=== PATIENT | female | born 1935 | race Caucasian/White ===

== ENCOUNTER → 2020-07-08 | Day surgery (SDC) | payer OTHER ==
[~2020-07-08] MED LIST: HYDROCODON-ACE1 EAC7 PO; NORVASC10 MG PO; ZOCOR20 MG PO
[2020-07-08 06:41] LABS: HEMATOCRIT 39.4 % (37.0-47.0); HEMOGLOBIN 13.3 gm/dL (12.0-15.0); MCH 29.7 pg (26.0-34.0); MCHC 33.7 g/dL (28.0-37.0); MCV 88.3 fL (80.0-100.0); MPV 7.9 fl. (7.2-11.1); RBC 4.47 mil/uL (4.20-5.00); RDW-CV 14.2 % (10.5-14.5); WBC 6.2 thou/uL (4.0-11.0)
[2020-07-08 06:50] LABS: CALCIUM 8.9 mg/dL (8.5-10.1); CREATININE 1.1 mg/dL (0.6-1.3); POTASSIUM 3.7 mmol/L (3.5-5.1)
[2020-07-08 07:52] LABS: TOTAL BILIRUBIN 0.6 mg/dL (<0.1-1.0); TOTAL PROTEIN 7.9 g/dL (6.4-8.2)
--- NOTE | 2020-07-08 12:13 | EKG ---
[place] [address] ELECTROCARDIOGRAM REPORT Name: HORACEMELVINA Barrios Room: [facility]#: [id number] Admission: 07/08/20 Attend Phys: Wilton Germain Discharge: Date of : 33 Date of Service: 07/08/20 0740 Report #: [id number] THIS REPORT FOR: //name// [facility] Test Date: 2020-07-08 Test Time: 07:40:19 Pat Name: MELVINA VU Department: Room: Gender: F Citrus Peeler: : 1935 Requested By: Wilton Carey Order Number: [id number] Reading MD: Remy Garcia Measurements Intervals Drake Rate: 56 P: 251 AR: 127 QRS: -35 QRSD: 96 T: 23 QT: 432 QTc: 417 Interpretive Statements Ectopic atrial rhythm Left axis deviation Abnormal R-wave progression, early transition Baseline wander in lead(s) II,III,aVF No previous ECG available for comparison Electronically Signed On 07-08-2020 12:13:24 CDT by Remy Garcia [email or web address] <ELECTRONICALLY SIGNED> By: Remy Garcia MD, FACC 07/08/20 1213 0740 0740 Remy Garcia MD, [facility] /EPI
--- NOTE | 2020-07-10 10:10 | PATH ---
[address] [address] PATHOLOGY RPT PROCEDURE Name: MELVINA VU Room: [facility]#: [id number] Admission: 07/08/20 Date of : 33 Discharge: Report #: [id number] Path Case #: [id number] [facility] Accession Number: [id number] . 01 Material submitted: . gallbladder - GALLBLADDER AND CONTENTS . 01 Clinical history: . LAPAROSCOPIC CHOLECYSTECTOMY CALCULUS OF GALLBLADDER . 02 Diagnosis: Gallbladder and contents: - Chronic cholecystitis with cystic fundal diverticuli, cholelithiasis and lymph node showing lipophagic reaction. . (AMPARO:mml; 07/09/2020) [facility] 07/09/2020 1523 Local . 02 Electronically signed: . Yogesh Dobbins MD, Pathologist NPI- [id number] . 01 Gross description: . Fixative: Formalin Labeled: Gallbladder and contents Specimen received: Intact cholecystectomy specimen Dimensions: 7.3 x 3.5 x 2.7 cm Serosa: [place]-muro muro-green and smooth Lymph node: Yes, measuring 0.7 x 0.6 x 0.3 cm Mucosa: Dark green and velvety Average wall thickness: 0.1 cm Calculi: Yes, one roughened black calculus is present within the gallbladder measuring 1.2 cm in greatest dimension Abnormalities: In the wall of the fundus are 2 simple cysts measuring 0.4 and 1.2 cm in greatest dimension, which are filled with watery fluid and have muro linings. A1- Electrical Sign Servicer body, fundus, and the cystic duct margin and lymph node. A2-cystic area submitted entirely ([facility]; 07/08/2020) [facility] 07/08/2020 1747 Local . 02 Pathologist provided ICD-10: K80.10 . 02 CPT . 891175 Specimen Comment: A courtesy copy of this report has been sent to [phone] [address] PATHOLOGY RPT PROCEDURE Name: MELVINA VU Room: [facility]#: [id number] Admission: 07/08/20 Date of : 33 Discharge: Report #: [id number] Path Case #: [id number] Specimen Comment: [id number] Specimen Comment: Report sent to / DR WHYTE Performed at: 01 [facility] [address], [place], [place] [id number] MD Yossi Wetzel MD Phone: [phone] Performed at: 02 [facility] [address], [place], [place] [id number] MD Yogesh Dobbins MD Phone: [phone]
--- NOTE | 2020-07-11 12:13 | OP ---
[facility] [address] [place] [address] OPERATIVE REPORT Name: MELVINA VU Room: [facility]#: [id number] Admission: 07/08/20 Attend Phys: Wilton Carey Discharge: Date of : 33 Report #: [id number] THIS REPORT FOR: cc: Sandrita Sanchez MD, Ghazal A. MD Patterson, Jonathan D. MD ~ DOC #: [id number] Wilton Carey MD DATE OF SURGERY: 07/08/2020 PREOPERATIVE DIAGNOSIS: Symptomatic cholelithiasis. POSTOPERATIVE DIAGNOSIS: Symptomatic cholelithiasis. OPERATION: Laparoscopic cholecystectomy. SURGEON: Wilton Carey MD. ANESTHESIA: General. ESTIMATED BLOOD LOSS: Minimal. SPECIMENS: Gallbladder. DESCRIPTION OF PROCEDURE: After informed consent was obtained, the patient was brought to the operating room and placed supine. SCDs were placed and working, preoperative antibiotics were administered, general anesthesia was induced. The abdomen was prepped and draped in the usual sterile fashion. A 10 mm incision was made below the umbilicus. Fascia was incised and a trocar was placed. Pneumoperitoneum was established. Three right upper quadrant 5 mm ports were placed. Gallbladder was grasped at the fundus and retracted cephalad. Infundibulum was grasped and retracted laterally. I dissected out the cystic duct and the cystic artery. The cystic plate was fully identified. The cystic duct and artery were clipped and ligated leaving 2 clips on the remaining duct and 1 on the remaining artery. Gallbladder was then taken off the liver bed with electrocautery. It was placed into an Endopouch and removed. The fascia was then closed with a rdbbuy-ox-olchc 0 Vicryl. Skin was closed with 4-0 Monocryl. Incisions were sealed with Steri-Strips. COMPLICATIONS: None. DISPOSITION: The patient was taken to recovery in satisfactory condition. MD ANA Mcclelland/[place] [address] OPERATIVE REPORT Name: MELVINA VU Room: [facility]#: [id number] Admission: 07/08/20 Attend Phys: Wilton Carey Discharge: Date of : 33 Report #: [id number] <ELECTRONICALLY SIGNED> By: Wilton Carey MD 07/11/20 1213 0835 0911Wilton Carey MD /trixie
== END | disposition home or self-care (01) ==
LOC: M.SUR 06:09
PROVIDERS: ATTEND Surgery
DX: K80.10 Calculus of gallbladder with chronic cholecystitis without obstruction (principal); K82.8 Other specified diseases of gallbladder; R59.0 Localized enlarged lymph nodes; R10.11 Right upper quadrant pain; I10 Essential (primary) hypertension; K21.9 Gastro-esophageal reflux disease without esophagitis; Z79.899 Other long term (current) drug therapy